=== PATIENT | male | born 1985 | race Caucasian/White ===

== ENCOUNTER 2017-12-05 09:16 | Emergency (ER) | payer MEDICAID ==
[~2017-12-05] VITALS: Ht 188 cm; Wt 77.2 kg
[~2017-12-05 09:16] MED LIST: AMYL1CAP56 PO; COL100C PO; HYDR2TAB28 PO; LACT10SO32 PO; PANT-47 PO; ZOF4T PO
[2017-12-05] MEDS ORDERED: HYDROmorphone 2mg/ml vial IV ONE (09:35)
[2017-12-05] MEDS ORDERED: ondansetron/PF 4mg/2ml inj IV ONE (09:35)
[2017-12-05] MEDS ORDERED: HYDROmorphone inj. 0.5 MG/0.5 ML DISP.SYRIN IV ONE ×2 (09:50→11:35)
[2017-12-05 10:12] LABS: BASOPHILS % (AUTO) 0.2 % (0-1); EOSINOPHILS # (AUTO) 0.2 X10'3 (0-0.9); EOSINOPHILS % (AUTO) 2.5 % (0-6); HEMATOCRIT 36.2 % (42.0-52.0); HEMOGLOBIN 12.7 g/dl (14.0-17.9); LYMPHOCYTES # (AUTO) 1.3 X10'3 (1.1-4.8); LYMPHOCYTES % (AUTO) 19.8 % (21-51); MEAN CORPUSCULAR HEMOGLOBIN 33.4 PG (27.0-31.0); MEAN CORPUSCULAR VOLUME 95.4 FL (78-98); MEAN PLATELET VOLUME 9.7 FL (7.4-10.4); MONOCYTES # (AUTO) 0.4 X10'3 (0-0.9); NEUTROPHILS # (AUTO) 4.6 X10'3 (1.8-7.7); NEUTROPHILS % (AUTO) 71.5 % (42-75); PLATELET COUNT 217 X10'3 (140-440); RED BLOOD COUNT 3.79 X10'6 (4.70-6.10); RED CELL DISTRIBUTION WIDTH 14.9 % (11.5-14.5); WHITE BLOOD COUNT 6.5 X10'3 (4.5-11.0)
[2017-12-05 10:27] LABS: ALANINE AMINOTRANSFERASE 61 U/L (12-78); ALBUMIN 2.5 G/DL (3.4-5.0); ALKALINE PHOSPHATASE 369 IU/L (46-116); ANION GAP 9 (8-16); ASPARTATE AMINO TRANSFERASE 97 U/L (10-37); BILIRUBIN,TOTAL 4.8 MG/DL (0.1-1.0); BLOOD UREA NITROGEN 9 MG/DL (7-18); BUN/CREATININE RATIO 12.9 (5.4-32.0); CALCIUM 8.4 MG/DL (8.5-10.1); CHLORIDE 109 MMOL/L (99-107); GLUCOSE 103 MG/DL (70-104); LIPASE 167 U/L (73-393); SODIUM 142 MMOL/L (135-145); TOTAL CARBON DIOXIDE 23.8 MMOL/L (24-32); eGFR > 90 ML/MIN
[2017-12-05 10:28] LABS: ALBUMIN/GLOBULIN RATIO 0.4 (1.1-1.5); POTASSIUM 2.8 MMOL/L (3.5-5.1); TOTAL PROTEIN 8.3 G/DL (6.4-8.2)
[2017-12-05] MEDS ORDERED: normal saline 1000ML IV soln IV ONE (10:30)
[2017-12-05] MEDS: potassium 10mEq/100ml NS w/LIDOcaine (10mg/bag) IV SCH ×2 (10:35→11:28)
[2017-12-05 10:53] LABS: MAGNESIUM 1.5 MG/DL (1.5-2.4)
[2017-12-05 10:55] LABS: INR 1.2 INR; PARTIAL THROMBOPLASTIN TIME 31 SECONDS (22-32); PROTHROMBIN TIME 12.5 SECONDS (9.0-12.0)
[2017-12-05] MEDS ORDERED: POTA10CA44 PO (12:26)
[2017-12-05 13:25] VITALS: BP 121/75
== END 2017-12-05 13:29 | disposition home or self-care (01) ==
LOC: ER 09:16
DX: E87.6 Hypokalemia (principal); R10.11 Right upper quadrant pain; F12.90 Cannabis use, unspecified, uncomplicated; Z90.49 Acquired absence of other specified parts of digestive tract; Z88.0 Allergy status to penicillin; Z88.2 Allergy status to sulfonamides; Z88.5 Allergy status to narcotic agent
CPT/HCPCS: 36415; 80053; 83690; 83735; 84145; 85025; 85610; 85730; 93005; 96361; 96365; 96366; 96375; 96376; 99285; J1170; J2405; J3480; J7030